=== PATIENT | male | born 1950 | race Caucasian/White ===

== ENCOUNTER 2016-12-21 09:17 | Emergency (ER) | payer MEDICARE ==
[~2016-12-21] VITALS: Ht 177.8 cm; Wt 84.1 kg
[~2016-12-21 09:17] MED LIST: FLOMAX0.4 MG PO; LORTAB 5/500 501 TAB PO; NO HOME MEDICATIONS; NORCO 325 MG-51 TAB PO
[2016-12-21 09:20] VITALS: BP 118/76; PULSE 80; TEMP 99.3
[2016-12-21] MEDS ORDERED: NORCO 325 MG-51 TAB PO (09:56)
[2016-12-21] MEDS ORDERED: INDOCIN 25MG CA25 MG PO (09:56)
== END 2016-12-21 10:42 | disposition home or self-care (01) ==
LOC: COL.ER 09:17
DX: M10.072 Idiopathic gout, left ankle and foot (principal); M10.071 Idiopathic gout, right ankle and foot